=== PATIENT | male | born 1965 | race Caucasian/White ===

== ENCOUNTER 2016-12-26 10:31 | Emergency (ER) | payer SELFPAY ==
[~2016-12-26] VITALS: Wt 89.0 kg
[2016-12-26] MEDS ORDERED: KETOROLAC 30 MG INJ IM STA (11:37)
[2016-12-26] MEDS ORDERED: IBUP-1542 PO (12:00)
[2016-12-26] MEDS ORDERED: CYCL-319 PO (12:00)
--- NOTE | 2016-12-26 17:05 | ERD ---
ER Documentation Chief Complaint Date/Time DATE: 12/26/16 TIME: 17:01 Chief Complaint LEFT LEG PAIN X 15 DAYS HPI This patient is a 51-year-old male with past medical history of type 2 diabetes presenting to the emergency department for left leg pain for the past 2 days. The patient states the pain starts in his left sided low back and radiates down his left leg. 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 The patient does have history of sciatica. The patient has taken ibuprofen with only mild relief of symptoms. Patient denies loss of bowel or bladder function, fevers, chills, or other symptoms at this time. ROS All systems reviewed and are negative except as per history of present illness. Medications Home Meds Active Scripts Ibuprofen* (Motrin*) 600 Mg Tab, 600 MG PO Q6, #30 TAB Prov:AZRA FLORES PA-C 12/26/16 Cyclobenzaprine Hcl* (Cyclobenzaprine Hcl*) 10 Mg Tablet, 10 MG PO TID, #15 TAB Prov:AZRA FLORES PA-C 12/26/16 Allergies Allergies: Coded Allergies: No Known Allergy (Unverified , 12/26/16) PMhx/Soc Medical and Surgical Hx: pt denies Medical Hx, pt denies Surgical Hx Hx Alcohol Use: Yes Hx Substance Use: No Hx Tobacco Use: Yes Smoking Status: Current every day smoker FmHx Noncontributory for chief complaint Physical Exam Vitals Vital Signs Date Time Temp Pulse Resp B/P Pulse Ox O2 Delivery O2 Flow Rate FiO2 12/26/16 10:36 98.0 72 18 126/69 99 Physical Exam Const: The patient is resting comfortably in no acute distress. Head: Atraumatic Eyes: Normal Conjunctiva ENT: Normal External Ears, Nose and Mouth. Neck: Full range of motion..~ No meningismus. Resp: Clear to auscultation bilaterally Cardio: Regular rate and rhythm, no murmurs Abd: Soft, non tender, non distended. Normal bowel sounds Skin: No petechiae or rashes Back: The patient has tenderness palpation of the left paraspinal lumbar area with a positive straight leg raise on the left side. Ext: No cyanosis, or edema Neur: Awake and alert Psych: Normal Mood and Affect Results 24 hrs Current Medications Medications (Trade) Dose Ordered Sig/Alina Route PRN Reason Start Time Stop Time Status Last Admin Dose Admin Ketorolac Tromethamine (Toradol) 30 mg ONCE STAT IM 12/26/16 11:37 12/26/16 11:38 DC 12/26/16 11:45 Procedures/MDM 51-year-old male presents secondary to complaints of left-sided low back and sciatica pain. On physical examination the patient is left-sided positive straight leg raise. The patient was treated in the department with IM Toradol and IM Decadron. The patient was feeling improved on reevaluation. I have low suspicion for cauda equina, epidural abscess, vertebral body fracture, or other emergent conditions. The patient is stable for outpatient management with a prescription for Flexeril and ibuprofen. The patient understands and agrees with the discharge plan and diagnosis. ER return precautions discussed. The patient is to follow-up with his primary care physician. Departure Diagnosis: Primary Impression: Sciatica Condition: Fair Patient Instructions: Back Pain W/ Sciatica [facility] Usted se quinonez hecho un examen mdico de control que le indica que no est en arturo condicin que requiera tratamiento urgente en el Departamento de Emergencia. Un estudio ms profundo y el tratamiento de lin condicin pueden esperar sin ningn riesgo hasta que usted sea atendida/o en el consultorio de lin mdico o arturo cl gabby. Es responsabilidad suya arreglar arturo jhon para el seguimiento del rodrick. MANEJO DE CONDICIONES NO URGENTES EN EL FUTURO 1) Si usted tiene un mdico de atencin primaria: Usted debera llamar a lin mdico de atencin primaria antes de venir al departamento de emergencia. Despus de las horas de consultorio, lin doctor o lin asociado/a est disponible por telfono. El mdico o enfermero de sravan en el servicio telefnico puede asesorarle por brayan medio para atender el problema, o rodrick contrario se puede programar arturo jhon. 2) Si usted no tiene un mdico de atencin primaria: Llame al mdico o clnica de referencia que aparece abajo mary ellen las horas de consultorio para hacer arturo jhon para que le vean. CLINICAS: [facility] [phone] [facility] [phone] [facility] [phone] [place] [address] [phone] [place] [id number] [phone] [facility]. [phone] [address] Additional Instructions: No mas mejor en 2-3 garcia, regresar. Mas peor en 24 horas, regresear rapidamente. Ir a doctor primario in 5-7 garcia. Usar instrucciones cuando gauri medicamento. AZRA FLORES PA-C Dec 26, 2016 17:05
== END 2016-12-26 12:24 | disposition home or self-care (01) ==
LOC: FTE 10:31
DX: M54.42 Lumbago with sciatica, left side (principal); F17.210 Nicotine dependence, cigarettes, uncomplicated; E11.9 Type 2 diabetes mellitus without complications
CPT/HCPCS: 96372; J1885

== ENCOUNTER 2016-12-29 07:32 | Emergency (ER) | payer MEDICAID ==
[~2016-12-29] VITALS: Ht 154.9 cm; Wt 75.0 kg
[~2016-12-29 07:32] MED LIST: CYCL-319 PO; IBUP-1542 PO
[2016-12-29 07:34] VITALS: Ht 154.9 cm; Wt 75.0 kg
[2016-12-29] MEDS ORDERED: HYDROmorphONE 2 MG/ML SYG IM STA (07:53)
[2016-12-29] MEDS ORDERED: ONDANSETRON (ODT) 4 MG TAB ODT STA (07:53)
[2016-12-29] MEDS ORDERED: HYDR-902 PO (08:01)
[2016-12-29 08:27] VITALS: BP 122/79; PULSE 70; RESP 18
--- NOTE | 2016-12-29 11:13 | ERD ---
ER Documentation Chief Complaint Date/Time DATE: 12/29/16 TIME: 11:10 Chief Complaint back pain radiates to left leg ( sciatica) started 15 days ago got worse HPI Patient is a 51-year-old male with diabetes and sciatica who presents with left- sided back pain. The patient has had the symptoms for the past 15 days. The patient was seen in the emergency department on December 26 and was given cyclobenzaprine and ibuprofen. The patient is taking pills for pain. The patient has pain radiating down the back of his left leg. Patient denies incontinence or fevers. Upon review of old medical records the patient one previous visit to the ER on December 26. The patient does not currently have a primary doctor. ROS All systems reviewed and are negative except as per history of present illness. Medications Home Meds Active Scripts Hydrocodone/Acetaminophen (Proctor 10-325 Tablet) 1 Each Tablet, 1 TAB PO Q6H Y for PAIN, #12 TAB Prov:MEHRDAD NG MD 12/29/16 Ibuprofen* (Motrin*) 600 Mg Tab, 600 MG PO Q6, #30 TAB Prov:AZRA FLORES PA-C 12/26/16 Cyclobenzaprine Hcl* (Cyclobenzaprine Hcl*) 10 Mg Tablet, 10 MG PO TID, #15 TAB Prov:AZRA FLORES PA-C 12/26/16 Allergies Allergies: Coded Allergies: No Known Allergy (Unverified , 12/26/16) PMhx/Soc Medical and Surgical Hx: pt denies Surgical Hx Anesthesia Reaction: No Hx Neurological Disorder: No Hx Respiratory Disorders: No Hx Cardiac Disorders: No Hx Psychiatric Problems: No Hx Miscellaneous Medical Probl: Yes (dm) Hx Alcohol Use: No Hx Substance Use: No Hx Tobacco Use: Yes Smoking Status: Former smoker FmHx Family History: diabetes Physical Exam Vitals Vital Signs Date Time Temp Pulse Resp B/P Pulse Ox O2 Delivery O2 Flow Rate FiO2 12/29/16 08:27 70 18 122/79 98 Room Air 12/29/16 07:34 98.4 65 19 127/79 97 Physical Exam Const: Moderate distress secondary to pain Head: Atraumatic Eyes: Normal Conjunctiva ENT: Normal External Ears, Nose and Mouth. Neck: Full range of motion..~ No meningismus. Resp: Clear to auscultation bilaterally Cardio: Regular rate and rhythm, no murmurs Abd: Soft, non tender, non distended. Normal bowel sounds Skin: No petechiae or rashes Back: Left-sided lower back pain radiating down the back of the left leg Ext: No cyanosis, or edema Neur: Awake and alert, strength is 5 out of 5 in the lower extremities bilaterally Psych: Normal Mood and Affect Results 24 hrs Current Medications Medications (Trade) Dose Ordered Sig/Alina Route PRN Reason Start Time Stop Time Status Last Admin Dose Admin Hydromorphone HCl (Dilaudid) 2 mg ONCE STAT IM 12/29/16 07:53 12/29/16 07:54 DC 12/29/16 08:00 Ondansetron HCl (Zofran Odt) 4 mg ONCE STAT ODT 12/29/16 07:53 12/29/16 07:54 DC 12/29/16 08:00 Procedures/MDM Patient is a 51-year-old male with diabetes and sciatica who presents with acute sciatica. The patient has pain in the left lower back radiates down the left leg. The patient is taking cyclobenzaprine and ibuprofen. The patient was given Dilaudid 2 mg IM and will be given a prescription for Proctor for pain. The patient will need to follow-up with Dr. Santana from pain management. The patient can return for any worsening symptoms. At this point I doubt cauda equina syndrome, epidural abscess, or epidural hematoma. I do not believe the patient requires further workup or admission the hospital at this time. Departure Diagnosis: Primary Impression: Sciatica Laterality: left Qualified Code: M54.32 - Sciatica of left side Condition: Fair Patient Instructions: Understanding Sciatica Referrals: YANIV SANTANA Additional Instructions: Specialist:Usted tiene arturo condicin mdica que requiere que canelo a un especialista dentro de los prximos 1-2 dimas.POR FAVOR,CON TRUJILLO SEGUIMIENTO DE PRIMARIA PHSICIAN refferal. SI USTED NO TIENE UN MDICO GENERAL Y / O USTED NO PUEDE PAGAR aura a un mdico,los siguientes shell RECURSOS sido suministrado a usted. ES TRUJILLO RESPONSABILIDAD PARA SER VISTOS POR EL ESPECIALISTA: MEHRDAD NG MD Dec 29, 2016 11:13
== END 2016-12-29 08:27 | disposition home or self-care (01) ==
LOC: FTE 07:32
DX: M54.42 Lumbago with sciatica, left side (principal); E11.9 Type 2 diabetes mellitus without complications; Z87.891 Personal history of nicotine dependence
CPT/HCPCS: J1170; Z7610; 96372